=== PATIENT | male | born 1950 | race Caucasian/White ===

== ENCOUNTER 2016-04-06 12:36 | Emergency (ER) | payer BC | END 2016-04-06 13:46 | disposition left against medical advice (07) | LOC: UCCORT 12:36 | DX: M79.646 Pain in unspecified finger(s) (principal); Z53.21 Procedure and treatment not carried out due to patient leaving prior to being seen by health care provider | CPT/HCPCS: 99211; G0463 ==

== ENCOUNTER 2017-07-14 14:31 | Emergency (ER) | payer BC ==
[2017-07-14 15:28] VITALS: BP 162/106
[2017-07-14] MEDS ORDERED: Lidocaine 1% MPF* 2 ML VIAL INJ ONE (15:29)
[2017-07-14] MEDS ORDERED: Triamcinolone Acetonide* 40 MG/ML 1 ML VIAL INTRAARTIC ONE (15:29)
[2017-07-14] MEDS ORDERED: Bupivacaine 0.25% SDV* 30 ML INJ ONE (15:32)
--- NOTE | 2017-07-14 15:36 | UC ---
Knee Pain HPI - HPI Summary HPI Summary: Right knee pain aggrevated after PT 2 days ago. Feels like some swelling, but no warmth or fever - History of Current Complaint Stated Complaint: KNEE PAIN Time Seen by Provider: 07/14/17 15:26 Hx Obtained From: Patient Onset/Duration: Sudden Onset, Lasting Days - 2, Still Present Severity Initially: Moderate Severity Currently: Severe Pain Intensity: 9 Character: Sharp, Aching, Throbbing Aggravating Factor(s): Movement, Weight Bearing, Prolonged Standing Associated Signs And Symptoms: Positive: Swelling Able to Bear Weight: Yes - Risk Factors Septic Arthritis Risk Factor: Pre-existing Joint Disease Gout Risk Factor: Age ^ 39, Male - Allergies/Home Medications Allergies/Adverse Reactions: Allergies Allergy/AdvReac Type Severity Reaction Status Date / Time levalbuterol [From Xopenex] AdvReac Altered Verified 07/14/17 15:29 Mental Status PMH/Surg Hx/FS Hx/Imm Hx - Additional Past Medical History Additional PMH: Muscular dystrophyh Endocrine History: Dyslipidemia Cardiovascular History: Hypertension Respiratory History: COPD Other History Of: Negative For: Anticoagulant Therapy - Surgical History Surgical History: Yes Surgery Procedure, Year, and Place: PT STATES PREVIOUS SINUS SURG LEFT SIDE - Family History Known Family History: Positive: None - reviewed & noncontributory, Cardiac Disease, Hypertension, Diabetes - father - Social History Occupation: Retired Lives: With Family Alcohol Use: Daily Alcohol Amount: pt stated that he drinks 2 beers a day Substance Use Type: None Smoking Status (MU): Former Smoker Type: Cigarettes Amount Used/How Often: 1PPD 20 YRS Length of Time of Smoking/Using Tobacco: 30+ years Have You Smoked in the Last Year: Yes When Did the Patient Quit Smoking/Using Tobacco: 1990 Household Exposure Type: Cigarettes - Immunization History Most Recent Influenza Vaccination: Fall 2014 Most Recent Tetanus Shot: up to date Most Recent Pneumonia Vaccination: yes Review of Systems Musculoskeletal: Arthralgia - right knee Is Patient Immunocompromised?: No All Other Systems Reviewed And Are Negative: Yes Physical Exam Triage Information Reviewed: Yes Appearance: Well-Appearing, Well-Nourished, Pain Distress Vital Signs Reviewed: Yes Eyes: Positive: Conjunctiva Clear Neck exam: Normal Respiratory Exam: Normal Cardiovascular Exam: Normal Abdomen Description: Positive: Nontender, No Organomegaly, Soft Musculoskeletal: Positive: Strength Limited @ - right leg, Other: - Right knee with no instability. No effusion or warmth Neurological: Positive: Abnormal Muscle Tone Psychological Exam: Normal Skin Exam: Normal Knee Pain Course/Dx - Differential Dx/Diagnosis Differential Diagnosis/HQI/PQRI: Contusion, Patellofemoral Syndrome, Sprain Provider Diagnoses: Osteoarthritis right knee Discharge - Sign-Out/Discharge Documenting (check all that apply): Discharge/Admit/Transfer - Discharge Plan Condition: Stable Disposition: HOME Patient Education Materials: Osteoarthritis (ED), Steroid Joint Injection (DC) Referrals: Michael Harrington MD [Primary Care Provider] - Additional Instructions: Watch for signs of infection, even up to 10 days later. In the future consider haluronic acid injections for the arthritis. - Billing Disposition and Condition Condition: STABLE Disposition: HOME
[2017-07-14] MEDS ORDERED: Bupivacaine 0.25% SDV* 30 ML ONE (15:39)
== END 2017-07-14 16:04 | disposition home or self-care (01) ==
LOC: UCCORT 14:31
DX: M17.11 Unilateral primary osteoarthritis, right knee (principal); Z88.8 Allergy status to other drugs, medicaments and biological substances; I10 Essential (primary) hypertension; Z87.891 Personal history of nicotine dependence
CPT/HCPCS: 20610; 99212; G0463; J3301

== ENCOUNTER 2018-04-29 19:29 | Inpatient (IN) | payer BC ==
[2018-04-29] MEDS ORDERED: NS 0.9% 1000 ML** 1,000 ML IV.FLUID IV ONE (20:00)
[2018-04-29] MEDS ORDERED: Acetaminophen SUPP* 325 MG SUPP PR ONE (20:01)
[2018-04-29] MEDS ORDERED: Piperacillin/Tazobac ADVAN(*) 3.375 GM in NS 0.9% 100 ML* 100 ML IVPB ONE (20:02)
[2018-04-29] MEDS ORDERED: Albuterol/Ipratropium NEB.SOL* Albuterol 2.5 MG/Ipratropium 0.5 MG 3 ML INH ONE (20:02)
--- NOTE | 2018-04-29 20:02 | ED ---
Complex/Multi-Sys Presentation - HPI Summary HPI Summary: Patient is a 68 y/o M presenting to ED with complaints of productive cough, AMS. reports that patient has been having productive cough for the past two days, notes PMHx of PNA, sepsis, and COPD. She states that the patient takes Advair. She states that patient has been sleeping more than usual but denies fever in patient. Patient was 87 o2 sat on RA upon arrival. Patient's states that the patient was altered today, states that patient's daughter had found the patient on the ground after he fell off his porch and possibly struck his head at around 1700 today. notes that patient works two jobs, at baseline is A&Ox3. PMHx of muscular dystrophy. On triage, pain is denied. Nothing is noted to aggravate/alleviate Sx. Home medications and allergies are reviewed. Level 5 caveat, AMS. - History Of Current Complaint Chief Complaint: EDAltMentalStatus Time Seen by Provider: 04/29/18 19:51 Hx Obtained From: Family/Lead Oracle Developer - Hx From Patient Unobtainable Due To: Altered Mental Status - level 5 caveat, AMS Onset/Duration: Lasting Hours - possible head injury 1700 today, Lasting Days - productive cough, increased sleep past two days, Still Present Timing: Constant - productive cough, increased sleep past two days, Hours - possible head injury 1700 today, Days - productive cough, increased sleep past two days Severity Currently: None - pain denied on triage Location: Negative Aggravating Factor(s): nothing Alleviating Factor(s): nothing Associated Signs And Symptoms: Positive: Cough - productive, Other - POSITIVE - HEAD INJURY, INCREASED SLEEP. Negative: Fever - Allergies/Home Medications Allergies/Adverse Reactions: Allergies Allergy/AdvReac Type Severity Reaction Status Date / Time levalbuterol [From Xopenex] AdvReac Altered Verified 04/29/18 19:34 Mental Status PMH/Surg Hx/FS Hx/Imm Hx Endocrine/Hematology History: Denies: Hx Anticoagulant Therapy, Hx Blood Disorders, Hx Diabetes, Hx Thyroid Disease Cardiovascular History: Reports: Hx Hypercholesterolemia, Hx Hypertension Denies: Hx Congestive Heart Failure, Hx Myocardial Infarction, Hx Pacemaker/ ICD, Other Cardiovascular Problems/Disorders Respiratory History: Reports: Hx Chronic Obstructive Pulmonary Disease (COPD), Hx Pneumonia, Hx Sleep Apnea, Other Respiratory Problems/Disorders - bronchitis Denies: Hx Asthma GI History: Denies: Hx Ulcer Musculoskeletal History: Reports: Other Musculoskeletal History - muscular dystrophy Sensory History: Reports: Hx Cataracts, Hx Contacts or Glasses Opthamlomology History: Reports: Hx Cataracts, Hx Contacts or Glasses Neurological History: Reports: Other Neuro Impairments/Disorders - muscular dystrophy, neuropathy blt hands and feet Psychiatric History: Reports: Hx Anxiety - Surgical History Surgery Procedure, Year, and Place: PT STATES PREVIOUS SINUS SURG LEFT SIDE Hx Anesthesia Reactions: No Infectious Disease History: Unable to Obtain/Confirm Infectious Disease History: Reports: Hx Clostridium Difficile - ESBL lung Denies: Hx Hepatitis, Hx Human Immunodeficiency Virus (HIV), Hx of Known/ Suspected MRSA, Hx Shingles, Hx Tuberculosis, Hx Known/Suspected VRE, Hx Known/ Suspected VRSA, History Other Infectious Disease, Traveled Outside the [place] in Last 30 Days - Family History Known Family History: Positive: Cardiac Disease, Hypertension, Diabetes - father - Social History Alcohol Use: Daily Alcohol Amount: pt stated that he drinks 2 beers a day Hx Substance Use: No Substance Use Type: Reports: None Hx Tobacco Use: Yes Smoking Status (MU): Former Smoker Type: Cigarettes Amount Used/How Often: 1PPD 20 YRS Length of Time of Smoking/Using Tobacco: 30+ years Have You Smoked in the Last Year: Yes Review of Systems - ROS Summary Review of Systems Summary: LEVEL 5 CAVEAT AMS Constitutional: Other - POSITIVE - INCREASED SLEEP Negative: Fever Positive: Cough - PRODUCTIVE Neurological: Other - POSITIVE - HEAD INJURY All Other Systems Reviewed And Are Negative: No - Comments Additional Review of Systems Comments: LEVEL 5 CAVEAT AMS Physical Exam - Summary Physical Exam Summary: VITAL SIGNS: Reviewed. GENERAL: Patient is a well-developed and nourished male who is lying comfortable in the stretcher. Patient is not in any acute respiratory distress. Patient is lethargic. HEAD AND FACE: No signs of trauma. No ecchymosis, hematomas or skull depressions. No sinus tenderness. EYES: PERRLA, EOMI x 2, No injected conjunctiva, no nystagmus. EARS: Hearing grossly intact. Ear canals and tympanic membranes are within normal limits. MOUTH: Oropharynx within normal limits. NECK: Supple, trachea is midline, no adenopathy, no JVD, no carotid bruit, no c- spine tenderness, neck with full ROM. CHEST: Symmetric, no tenderness at palpation LUNGS: Decreased breath sounds bilaterally. No wheezing or crackles. CVS: Regular rate and rhythm, S1 and S2 present, no murmurs or gallops appreciated. ABDOMEN: Soft, non-tender. No signs of distention. No rebound no guarding, and no masses palpated. Bowel sounds are normal. EXTREMITIES: reports weakness from dystrophy, no edema, no cyanosis or clubbing. NEURO: Patient is alert and oriented to name, does not answer any other questions beyond name. Cannot assess patient neurologically due to AMS. SKIN: Dry and warm Triage Information Reviewed: Yes Vital Signs On Initial Exam: Initial Vitals Temp Pulse Resp BP Pulse Ox 97.4 F 113 18 88/62 88 04/29/18 19:30 04/29/18 19:30 04/29/18 19:30 04/29/18 19:30 04/29/18 19:30 Vital Signs Reviewed: Yes Completion Of Physical Exam Limited Due To: Altered Mental Status, Level 5 Diagnostics - Vital Signs Vital Signs Temp Pulse Resp BP Pulse Ox 04/29/18 19:30 97.4 F 113 18 88/62 88 - Laboratory Result Diagrams: 04/29/18 20:10 04/29/18 20:10 Lab Statement: Any lab studies that have been ordered have been reviewed, and results considered in the medical decision making process. - Radiology CXR Radiology Interpretation Completed By: ED Physician - Dr. Bhatti Summary of Radiographic Findings: Left lower lobe PNA, pending official report. - CT BRAIN CT CT Interpretation Completed By: Radiologist Summary of CT Findings: IMPRESSION: No acute intracranial abnormality. This report was reviewed by Dr. Bahtti. - EKG 1826 Cardiac Rate: NL - rate of 86 BPM EKG Rhythm: Sinus Rhythm Summary of EKG Findings: EKG showed sinus rhythm with rate of 84 BPM, normal axis, normal interval, no ischemic changes. Re-Evaluation - Re-Evaluation First Eval Re-Evaluation Time: 21:06 Comment: Informed and patient of admission, they are agreeable. Complex Multi-Symp Course/Dx Course Of Treatment: Patient is a 68 y/o M presenting to ED with complaints of productive cough, AMS. reports that patient has been having productive cough for the past two days, notes PMHx of PNA, sepsis, and COPD. She states that the patient takes Advair. She states that patient has been sleeping more than usual but denies fever in patient. Patient was 87 o2 sat on RA upon arrival. Patient's states that patient was altered today, states that patient's daughter had found the patient on the ground after he fell off his porch and possibly struck his head at around 1700 today. notes that patient works two jobs, at baseline is A&Ox3. PMHx of muscular dystrophy. On triage, pain is denied. Nothing is noted to aggravate/alleviate Sx. Home medications and allergies are reviewed. Level 5 caveat, AMS. On physical exam, patient is alert and oriented to name, does not answer any other questions beyond name. Cannot assess patient neurologically due to AMS. Patient is lethargic. reports weakness from dystrophy. Decreased breath sounds bilaterally. CXR showed Left lower lobe PNA, pending official report. EKG showed sinus rhythm with rate of 84 BPM, normal axis, normal interval, no ischemic changes. Labs showed Hgb 13.5, Hct 41, absolute lymphs 0.9, INR 1.15, potassium 132, carbon dioxide 21, trop 0.01, CRP 103.25, WBC 8.1. Brain CT IMPRESSION: No acute intracranial abnormality. During ED course, patient received vancomycin HCl 1000 mg in sodium chloride 250 mls @ 166.667 mls/hr IVPB ED ONCE ONE, fluids, piperacillin sod/tazovactam sod 3.375 gm in sodium chloride 100 mls @ 200 mls/hr IVPB ED ONCE ONE, and duoneb. Patient's case was discussed with Dr. Kaur, Dr. Kaur accepts for admission, ABG to be received. Informed and patient of admission, they are agreeable. - Diagnoses Provider Diagnoses: PNA (pneumonia) - Physician Notifications Discussed Care Of Patient With: Irina Kaur Time Discussed With Above Provider: 20:53 Instructed by Provider To: Other - Patient's case was discussed with Dr. Kaur, Dr. Kaur accepts for admission. Discharge - Sign-Out/Discharge Documenting (check all that apply): Patient Departure - admit - Discharge Plan Condition: Good Disposition: ADMITTED TO [facility] Referrals: Vaishali Harrington MD [Primary Care Provider] - - Attestation Statements Document Initiated by Scribe: Yes Documenting Scribe: VAISHALI LAROSE Provider For Whom Scribe is Documenting (Include Credential): LIUDMILA BHATTI MD Scribe Attestation: VAISHALI Banks, scribed for LIUDMILA BHATTI MD on 04/29/18 at 2102. Status of Scribe Document: Ready
[2018-04-29] MEDS ORDERED: Vancomycin(*) 1,000 MG in NS 0.9% 250 ML* 250 ML IVPB ONE (20:03)
[2018-04-29 20:23] LABS: ABS Basophils 0 10^3/ul (0-0.2); ABS Eosinophils 0 10^3/ul (0-0.6); ABS Lymphocytes 0.9 10^3/ul (1.0-4.8); ABS Monocytes 0.5 10^3/ul (0-0.8); ABS Neutrophils 6.6 10^3/ul (1.5-7.7); ABS Nucleated RBC 0 10^3/ul; Eosinophil % 0.2 %; Hematocrit 41 % (42-52); Hemoglobin 13.5 g/dl (14.0-18.0); Lymphocyte % 11.5 %; Mean Corpuscular HGB Conc 33 g/dl (31-36); Mean Corpuscular Hemoglobin 27 pg (27-31); Mean Corpuscular Volume 80 fL (80-94); Mean Platelet Volume 8.2 fL (7.4-10.4); Nucleated Red Blood Cells % 0; Platelet Count 182 10^3/ul (150-450); Red Cell Distribution Width 14 % (10.5-15); White Blood Count 8.1 10^3/ul (3.5-10.8)
[2018-04-29 20:31] LABS: Activated Partial Thrombo Time 35.6 seconds (26.0-36.3); INR 1.15 (0.77-1.02)
[2018-04-29 20:40] LABS: ALT 19 U/L (7-52); AST 31 U/L (13-39); Albumin 3.8 g/dL (3.2-5.2); Albumin/Globulin Ratio 1.2 (1-3); Alkaline Phosphatase 53 U/L (34-104); Anion Gap 10 mmol/L (2-11); BUN/Creatinine Ratio 9.6 (8-20); Blood Urea Nitrogen 11 mg/dL (6-24); C Reactive Protein 103.25 mg/L (<8.01); CO2 Carbon Dioxide 21 mmol/L (22-32); Calcium 9.2 mg/dL (8.6-10.3); Chloride 101 mmol/L (101-111); EGFR African American 76.3 (>60); EGFR Non-African American 63.1 (>60); Globulin 3.1 g/dL (2-4); Glucose 89 mg/dL (70-100); Potassium 4.1 mmol/L (3.5-5.0); Sodium 132 mmol/L (135-145); Total Protein 6.9 g/dL (6.4-8.9); Troponin I 0.01 ng/mL (<0.04)
[2018-04-29] MEDS ORDERED: Albuterol 2.5 MG/3 ML NEB.SOL* (0.083%) INH SCH ×2 (21:00→23:00)
[2018-04-29] MEDS ORDERED: Acetaminophen SUPP* 650 MG SUPP ONE (21:00)
[2018-04-29] MEDS ORDERED: Naloxone* 0.4 MG/ML 1 ML VIAL IV PUSH ONE (21:30)
[2018-04-29] MEDS ORDERED: Naloxone* 0.4 MG/ML 1 ML VIAL ONE (21:32)
[2018-04-29] MEDS ORDERED: Meropenem 1 GM PREMIX(*) 1 GM/50 ML BAG IV ONE (21:37)
[2018-04-29] MEDS ORDERED: Morphine INJ* 2 MG/ML 1 ML SYRINGE (TWO MG - NEW SYRINGE VERSION) IV PRN (21:41)
[2018-04-29] MEDS ORDERED: Ondansetron INJ* 2 MG/ML VIAL IV PRN (21:41)
[2018-04-29 21:58] LABS: Alcohol < 10 mg/dL (<10)
[2018-04-29] MEDS: Acetaminophen SUPP* 650 MG SUPP PR ONE ×2 (22:00→23:00)
[2018-04-29] MEDS: Acetaminophen SUPP* 325 MG SUPP PR ONE ×2 (22:01→23:00)
[2018-04-29] MEDS ORDERED: Albuterol/Ipratropium NEB.SOL* Albuterol 2.5 MG/Ipratropium 0.5 MG 3 ML INH PRN (22:11)
[2018-04-29 22:26] LABS: Influenza A Molecular NEGATIVE (Negative); Influenza B Molecular NEGATIVE (Negative)
[2018-04-29] MEDS ORDERED: Acetaminophen ADULT LIQ* 650 MG/20.3 ML UDC ONE (22:29)
--- NOTE | 2018-04-29 23:29 | HP ---
HISTORY AND PHYSICAL: DATE OF ADMISSION: 04/29/18 TIME OF EVALUATION: 2100 PRIMARY CARE PHYSICIAN: Michael Harrington MD. CHIEF COMPLAINT: Altered mental status. HISTORY OF PRESENT ILLNESS: Of note, most of the history is obtained by the , Karrie Richards, who is an linux network systems administrator at urgent care. This is a 68-year- old male with past medical history of muscular dystrophy, who began coughing around 04/26/18. He continued to cough with some shortness of breath. The came home from urgent care this evening and she found him disoriented with nonsensical speaking and she brought him urgently to the emergency room for further evaluation. On arrival to the emergency room, he was satting 87% on room air. She states he has not had any vomiting or diarrhea, no abdominal pain , no urinary symptoms. She states that he is high aspiration risk because of his muscular dystrophy. He does cough frequently after he is eating. They do try to modify his position and technique, but they have not modified his diet. He had not had a swallow evaluation for the past several years. He has had a decline over the past few months with decrease in p.o. with weight loss, but he remains independent of his ADLs. Otherwise, review of systems is limited due to the patient's altered mental status. In the emergency room, the patient had labs, imaging. He was given 250 cc of normal saline, vancomycin, Zosyn, albuterol nebs, and referred to the hospitalist service for further evaluation. PAST MEDICAL HISTORY: 1. History of aspiration pneumonia as well as ESBL Klebsiella pneumoniae. 2. History of muscular dystrophy with lower extremity weakness. 3. COPD, on room air. 4. Hyperlipidemia. 5. History of peripheral neuropathy. 6. Chronic pain, on narcotics. 7. History of obstructive sleep apnea, the patient is intolerant to CPAP. 8. Insomnia. MEDICATIONS: The was able to give me his list, but not the dosages. 1. Unclear how much OxyContin he is currently taking. She states he has been weaning back on this. 2. Lactulose as needed. 3. Atrovent as needed. 4. Indocin as needed. 5. Advair b.i.d. 6. TriCor 145 mg p.o. daily. 7. Lunesta daily at bedtime as needed. 8. Flexeril as needed. 9. Atorvastatin 20 mg daily. 10. Aspirin 325 mg daily. 11. Albuterol nebulizer as needed. ALLERGIES: LEVALBUTEROL caused altered mental status. FAMILY HISTORY: Mother from pancreatic cancer in her 70s. Father from an ID at age 68. SOCIAL HISTORY: The patient lives at home with his who is healthcare proxy. He is independent of his ADLs. He ambulates with a cane. 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 He quit smoking more than 25 years ago. He does drink a few glasses of wine per day. His code status is full code. REVIEW OF SYSTEMS: A 14-point review of systems is limited due to the patient' s altered mental status. PHYSICAL EXAMINATION GENERAL: The patient is sleeping, but does awake to verbal and tactile stimulation. VITAL SIGNS: Temp 98.9, pulse rate 100, respiratory rate 12, oxygen saturation is 98% on 5 L OxyMask, blood pressure is 95/52. HEENT: Head normocephalic. Pupils are dilated and reactive. Conjunctivae anicteric. Oropharynx, mucous membranes are dry. He has foam balls in his oropharynx region. He has poor dentition. NECK: Supple. No lymphadenopathy, no nuchal rigidity. RESPIRATORY: Bilateral rhonchi. No expiratory wheeze. No increased work of breathing. CARDIAC: Tachycardic. Soft systolic murmur heard throughout. ABDOMEN: Soft, nontender, and nondistended. EXTREMITIES: No clubbing, cyanosis, or edema. He has +2 DPs. NEUROLOGIC: The patient is alert and oriented x1. Oriented to self. As mentioned, does awake to voice and tactile stimuli. No gross focal neurologic deficits. LABORATORY DATA/RADIOGRAPHIC DATA: White count 8.1, hemoglobin 13.5, hematocrit 41, platelets 182. INR is 1.15. Blood gas, pH of 7.3, pCO2 of 29, pO2 is 122. Sodium 132, potassium 4.1, chloride 101, bicarb 21, BUN 11, creatinine 1.15, glucose 89, lactic acid 1, CRP is 103, troponin is 0.01, BNP is 56. Radiographic Data: Increased opacification in the right middle lobe and right lower lobe. ASSESSMENT: This is a 68-year-old male with past medical history of muscular dystrophy who presents with worsening cough, shortness of breath, and altered mental status. 1. Cough, shortness of breath, and altered mental status. Assessment: Foreign objects were found in his oropharynx which are nontoxic play toys that the states that they have at home with for their granddaughter. There was concern at that time that he may have taken an extra OxyContin. 0.4 mg of Narcan was given in the emergency room and he did wake up and became much more alert, so I suspect his altered mental status is secondary to taking extra OxyContin. I am concerned that the patient does have aspiration pneumonia. He also has a history of ESBL Klebsiella pneumoniae and he has been declining with weight loss and decreased appetite. Plan: We will admit to [address] [place] [address] on telemetry. I am going to change him to meropenem for now, which will cover him for ESBL klebsiella and also for aspiration pneumonia. We will put him in for a swallow evaluation and swallowing function imaging test as well and a nutrition consult. We will keep him n.p.o. until he passes a dysphagia screen by the nursing staff. We will also check an alcohol level and continue bladder scan and obtain a sputum sample if possible. No indication for prednisone at this time as the patient is not actively wheezing. We will continue him on his albuterol and DuoNeb. 2. Chronic medical problems. Chronic pain, as mentioned, we will need to get the med rec to obtain what the dosage of OxyContin the patient is actually taking. If he does pass a swallow, we will resume and if he is more alert, we will resume his OxyContin at a lower dose of 60 in the morning and increase it accordingly. Continue him on his bowel regimen, continue his inhalers as prescribed. 3. FEN. We will keep him n.p.o. for now in his state of somnolence with IV fluids. 4. DVT prophylaxis. The patient scores high risk. We will place him on heparin subcu t.i.d. 5. Code status. Full code. PATIENT TIME: Greater than 50 minutes spent doing his history and physical, more than half the time spent in direct patient contact. [id number]/CPS #: [id number] MTDD
[2018-04-30] MEDS: NS 0.9% 1000 ML** 1,000 ML IV SCH ×2 (00:38→09:31)
[2018-04-30] MEDS: Heparin VIAL(*) 5000 UNITS/ML VIAL (FIVE THOUSAND) SUBCUT SCH ×4 (01:15→21:43)
[2018-04-30 06:05] LABS: Urine Appearance Cloudy; Urine Bilirubin Negative (Negative); Urine Blood Negative (Negative); Urine Color Amber; Urine Glucose Negative (Negative); Urine Ketones Negative (Negative); Urine Nitrite Negative (Negative); Urine Protein Negative (Negative); Urine Specific Gravity 1.018 (1.010-1.030); Urine Urobilinogen Negative (Negative)
[2018-04-30 07:43] LABS: ABS Basophils 0 10^3/ul (0-0.2); ABS Eosinophils 0 10^3/ul (0-0.6); ABS Lymphocytes 1.7 10^3/ul (1.0-4.8); ABS Monocytes 0.5 10^3/ul (0-0.8); ABS Neutrophils 4.1 10^3/ul (1.5-7.7); ABS Nucleated RBC 0 10^3/ul; Eosinophil % 0.6 %; Hematocrit 33 % (42-52); Hemoglobin 10.8 g/dl (14.0-18.0); Lymphocyte % 27.4 %; Mean Corpuscular HGB Conc 33 g/dl (31-36); Mean Corpuscular Hemoglobin 26 pg (27-31); Mean Corpuscular Volume 81 fL (80-94); Mean Platelet Volume 7.9 fL (7.4-10.4); Nucleated Red Blood Cells % 0; Platelet Count 127 10^3/ul (150-450); Red Blood Count 4.13 10^6/ul (4.00-5.40); Red Cell Distribution Width 14 % (10.5-15); White Blood Count 6.3 10^3/ul (3.5-10.8)
[2018-04-30] MEDS: Albuterol 2.5 MG/3 ML NEB.SOL* (0.083%) INH SCH ×3 (08:17→20:14)
[2018-04-30 08:21] LABS: Calcium 7.8 mg/dL (8.6-10.3); EGFR African American 89.6 (>60); EGFR Non-African American 74.1 (>60); Potassium 3.9 mmol/L (3.5-5.0)
[2018-04-30] MEDS: Fluticasone-Salmeterol 250-50* DISKUS INH SCH ×2 (08:21→20:14)
[2018-04-30] MEDS ORDERED: Meropenem 1 GM PREMIX(*) 1 GM/50 ML BAG IV SCH (09:00)
[2018-04-30] MEDS: Aspirin TAB* 325 MG PO SCH (13:17)
[2018-04-30] MEDS: oxyCODONE SR TAB(*) 20 MG TAB.SR PO SCH ×2 (13:19→21:26)
[2018-04-30] MEDS: Atorvastatin* 20 MG TAB PO SCH (13:19)
--- NOTE | 2018-04-30 16:07 | PN ---
Subjective Date of Service: 04/30/18 Interval History: Seen with at bedside +cough Not SOB but requiring 4 L O2. Denies CP, LH, nausea/emesis Has not walked an appreciable distance Objective Active Medications: Albuterol (Ventolin 2.5 Mg/3 Ml Neb.Elsie*) 2.5 mg INH .Q20M [facility] Last Admin: 04/30/18 08:08 Dose: Not Given Albuterol (Ventolin 2.5 Mg/3 Ml Neb.Elsie*) 2.5 mg INH [id number] AWAKE [facility] Last Admin: 04/30/18 08:17 Dose: 2.5 mg Albuterol/Ipratropium (Duoneb (Albuterol 2.5 Mg/Ipratropium 0.5 Mg)) 1 neb INH Q4H PRN PRN Reason: SOB/WHEEZING Aspirin (Aspirin Tab*) 325 mg PO DAILY [facility] Last Admin: 04/30/18 13:17 Dose: Not Given Atorvastatin Calcium (Lipitor*) 20 mg PO DAILY [facility] Last Admin: 04/30/18 13:19 Dose: 20 mg Heparin Sodium (Porcine) (Heparin Vial(*)) 5,000 units SUBCUT Q8HR [facility] Last Admin: 04/30/18 13:20 Dose: 5,000 units Meropenem (Merrem 1 Gm Premix(*)) 1 gm in 50 mls @ 100 mls/hr IV Q8H [facility] Last Admin: 04/30/18 09:30 Dose: 100 mls/hr Sodium Chloride (Ns 0.9% 1000 Ml) 1,000 mls @ 125 mls/hr IV PER RATE [facility] Last Admin: 04/30/18 09:31 Dose: 125 mls/hr Morphine Sulfate (Morphine Inj ((Syringe))*) 2 mg IV Q4H PRN PRN Reason: PAIN - MILD Ondansetron HCl (Zofran Inj*) 4 mg IV Q4H PRN PRN Reason: NAUSEA/VOMITING Oxycodone HCl (Oxycontin(*)) 60 mg PO Q12HR [facility] Last Admin: 04/30/18 13:19 Dose: Not Given Fluticasone/Salmeterol (Advair Diskus 250-50*) 1 puff INH BID [facility] Last Admin: 04/30/18 08:21 Dose: 1 inh Zolpidem Tartrate (Ambien Tab*) 10 mg PO BEDTIME PRN; Protocol PRN Reason: SLEEP Vital Signs - 8 hr 04/30/18 11:09 Temperature 97.4 F Pulse Rate 75 Respiratory 18 Rate Blood Pressure 141/71 (mmHg) O2 Sat by Pulse 98 Oximetry Oxygen Devices in Use Now: Nasal Cannula - 4L NC Appearance: sitting up in bed, NAD Eyes: No Scleral Icterus, PERRLA Ears/Nose/Mouth/Throat: NL Teeth, Lips, Gums, Clear Oropharnyx Neck: NL Appearance and Movements; NL JVP, Trachea Midline Respiratory: Symmetrical Chest Expansion and Respiratory Effort, - - diffuse rhochi throughout, trace end expiratory wheeze Cardiovascular: RRR Abdominal: NL Sounds; No Tenderness; No Distention, No Hepatosplenomegaly Lymphatic: No Cervical Adenopathy Skin: No Rash or Ulcers Neurological: Alert and Oriented x 3 Result Diagrams: 04/30/18 07:12 04/30/18 07:12 Microbiology and Other Data: Microbiology 04/30/18 06:00 Gram Stain - Final Sputum Expectorated 04/29/18 22:00 Influenza Types A,B Antigen - Final Nasal Specimen received for Influenza A/B Molecular testing Assess/Plan/Problems-Billing Assessment: 68 yo M h/o muscular dystrophy, COPD without chornic resp failure, chronic pain on narcotics, EVER not on CPAP developed AMS and hypoxic respiratory failure. - Patient Problems (1) Acute respiratory failure with hypoxia Comment: Concern for aspiration PNA although not evident on presenting CXR, normal WBC, Tmax 100.3 (once) Lung exam reveals diffuse adventitious lung sounds. Plan on checking CT non-con for better interogation of lungs change meropenum to zosyn start prednison 60 mg daily tomorrow. (2) COPD (chronic obstructive pulmonary disease) Comment: Continue nebs and dulera. This does not appear to be an exacerbation although remains in the differential Starting PO steroids 05/01 (3) Chronic pain Comment: ISTOP reviewed; receiving oxycontin ER 80mg 180 tabs monthly (480 mg/ day or 720 mg morphine equivalents) He did receive narcan with some improvement in the ED This seems like an excessive dose and may be contributing to his presentation with AMS (4) DVT prophylaxis Comment: SQ heparin
[2018-04-30] MEDS ORDERED: Piperacillin/Tazobac ADVAN(*) 3.375 GM in NS 0.9% 100 ML* 100 ML IVPB ONE (17:00)
[2018-04-30] MEDS ORDERED: Zosyn per Pharmacy* NOTE FOLLOW UP SCH (17:00)
[2018-04-30] MEDS: methylPREDNISolone SOD 40 MG* 1 ML VIAL IV SCH (17:29)
[2018-04-30] MEDS: ZOSYN 3.375 GM Q8H per EXTENDED INFUSION IVPB SCH ×2 (21:43)
[2018-04-30] MEDS ORDERED: Zolpidem TAB* 10 MG PO PRN (21:44)
--- NOTE | 2018-05-01 00:38 | PN ---
Progress Note - Progress Note Date of Service: 05/01/18 Note: Patient had 500 cc urine output, PVR >500 - patient refused straight cath. Recommend follow up in AM
[2018-05-01] MEDS: Albuterol 2.5 MG/3 ML NEB.SOL* (0.083%) INH SCH (01:18)
[2018-05-01] MEDS: methylPREDNISolone SOD 40 MG* 1 ML VIAL IV SCH ×3 (01:41→16:42)
[2018-05-01] MEDS ORDERED: Albuterol 2.5 MG/3 ML NEB.SOL* (0.083%) INH PRN (02:16)
[2018-05-01] MEDS: ZOSYN 3.375 GM Q8H per EXTENDED INFUSION IVPB SCH ×6 (06:13→20:50)
[2018-05-01] MEDS: Heparin VIAL(*) 5000 UNITS/ML VIAL (FIVE THOUSAND) SUBCUT SCH ×3 (06:16→20:52)
[2018-05-01] MEDS: Fluticasone-Salmeterol 250-50* DISKUS INH SCH ×2 (07:29→19:36)
[2018-05-01] MEDS ORDERED: predniSONE TAB* 20 MG PO SCH (09:00)
[2018-05-01] MEDS: Atorvastatin* 20 MG TAB PO SCH (09:01)
[2018-05-01] MEDS: Aspirin TAB* 325 MG PO SCH ×2 (09:01→09:13)
[2018-05-01] MEDS: oxyCODONE SR TAB(*) 20 MG TAB.SR PO SCH ×2 (09:01→20:49)
--- NOTE | 2018-05-01 17:29 | PN ---
Subjective Date of Service: 05/01/18 Interval History: Titrated off oxygen cough less productive and purulent does not feel SOB Objective Active Medications: Albuterol (Ventolin 2.5 Mg/3 Ml Neb.Elsie*) 2.5 mg INH Q4H PRN PRN Reason: SOB/WHEEZING Albuterol/Ipratropium (Duoneb (Albuterol 2.5 Mg/Ipratropium 0.5 Mg)) 1 neb INH Q4H PRN PRN Reason: SOB/WHEEZING Aspirin (Aspirin Tab*) 325 mg PO DAILY [facility] Last Admin: 05/01/18 09:13 Dose: Not Given Atorvastatin Calcium (Lipitor*) 20 mg PO DAILY [facility] Last Admin: 05/01/18 09:01 Dose: 20 mg Heparin Sodium (Porcine) (Heparin Vial(*)) 5,000 units SUBCUT Q8HR [facility] Last Admin: 05/01/18 13:21 Dose: 5,000 units Piperacillin Sod/Tazobactam (Sod 3.375 gm/ Sodium Chloride) 100 mls @ 25 mls/ hr IVPB Q8H [facility] Last Admin: 05/01/18 13:21 Dose: 25 mls/hr Methylprednisolone Sodium Succinate (Solu-Medrol 40 Mg) 40 mg IV Q8H [facility] Last Admin: 05/01/18 16:42 Dose: 40 mg Morphine Sulfate (Morphine Inj ((Syringe))*) 2 mg IV Q4H PRN PRN Reason: PAIN - MILD Ondansetron HCl (Zofran Inj*) 4 mg IV Q4H PRN PRN Reason: NAUSEA/VOMITING Oxycodone HCl (Oxycontin(*)) 60 mg PO Q12HR [facility] Last Admin: 05/01/18 09:01 Dose: 60 mg Pharmacy Consult (Zosyn Per Pharmacy*) 1 note FOLLOW UP .ZOSYN PER PHARMACY [facility] Fluticasone/Salmeterol (Advair Diskus 250-50*) 1 puff INH BID [facility] Last Admin: 05/01/18 07:29 Dose: 1 inh Zolpidem Tartrate (Ambien Tab*) 10 mg PO BEDTIME PRN; Protocol PRN Reason: SLEEP Vital Signs - 8 hr 05/01/18 05/01/18 05/01/18 09:47 11:38 11:54 Temperature 98.1 F 98.7 F Pulse Rate 76 83 Respiratory 16 20 Rate Blood Pressure 154/75 148/75 (mmHg) O2 Sat by Pulse 100 100 100 Oximetry Oxygen Devices in Use Now: None Appearance: NAD Eyes: No Scleral Icterus, PERRLA Ears/Nose/Mouth/Throat: NL Teeth, Lips, Gums, Clear Oropharnyx Neck: NL Appearance and Movements; NL JVP, Trachea Midline Respiratory: Symmetrical Chest Expansion and Respiratory Effort, - - clear in bases with continued whonchi in upper lobes b/l no wheeze Cardiovascular: RRR Abdominal: NL Sounds; No Tenderness; No Distention, No Hepatosplenomegaly Extremities: No Edema Skin: No Rash or Ulcers Neurological: Alert and Oriented x 3 Result Diagrams: 04/30/18 07:12 04/30/18 07:12 Microbiology and Other Data: Microbiology 04/30/18 06:00 Gram Stain - Final Sputum Expectorated 04/29/18 22:00 Influenza Types A,B Antigen - Final Nasal Specimen received for Influenza A/B Molecular testing Assess/Plan/Problems-Billing Assessment: 68 yo M h/o muscular dystrophy, COPD without chornic resp failure, chronic pain on narcotics, EVER not on CPAP developed AMS and hypoxic respiratory failure. - Patient Problems (1) Acute respiratory failure with hypoxia Comment: Concern for aspiration PNA although not evident on presenting CXR or CT chest Sputum positive for H. flu Suspect H. flu PNA and possible component of COPD exacerbation c/w zosyn with plan to d/c on PO augemntin tomorrow if remains stable start prednisone 60 mg daily tomorrow - decreased from IV (2) COPD (chronic obstructive pulmonary disease) Comment: Continue nebs and dulera. REsp status improved with abx and steroids likely dc with short steroid course (3) Chronic pain Comment: ISTOP reviewed; receiving oxycontin ER 80mg 180 tabs monthly (480 mg/ day or 720 mg morphine equivalents) He did receive narcan with some improvement in the ED indicating some component of toxic encepholopathy This seems like an excessive dose and may be contributing to his presentation with AMS (4) DVT prophylaxis Comment: SQ heparin Status and Disposition: likely home tomorrow if remains stable on de escalating doses of steroids
[2018-05-02] MEDS: ZOSYN 3.375 GM Q8H per EXTENDED INFUSION IVPB SCH ×4 (05:31→13:16)
[2018-05-02] MEDS: Heparin VIAL(*) 5000 UNITS/ML VIAL (FIVE THOUSAND) SUBCUT SCH ×2 (05:31→13:27)
[2018-05-02] MEDS: Fluticasone-Salmeterol 250-50* DISKUS INH SCH (08:07)
[2018-05-02] MEDS ORDERED: predniSONE TAB* 50 MG PO SCH (09:00)
[2018-05-02] MEDS: Atorvastatin* 20 MG TAB PO SCH (10:36)
[2018-05-02] MEDS: Aspirin TAB* 325 MG PO SCH (10:36)
[2018-05-02] MEDS: oxyCODONE SR TAB(*) 20 MG TAB.SR PO SCH (10:37)
[2018-05-02 11:40] VITALS: BP 168/70
[2018-05-02] MEDS ORDERED: Lisinopril TAB* 5 MG PO SCH (15:00)
--- NOTE | 2018-05-02 21:09 | DS ---
CC: Dr. Harrington.* DISCHARGE SUMMARY: DATE OF ADMISSION: 04/29/18. DATE OF DISCHARGE: 05/02/18. PRIMARY CARE PROVIDER: Dr. Harrington. DISCHARGE DIAGNOSES: 1. Pneumonia with Haemophilus influenzae cultures in the sputum. 2. Chronic obstructive pulmonary disease exacerbation. SECONDARY DIAGNOSES: 1. History of aspiration pneumonia as well as history of ESBL Klebsiella pneumonia infection. 2. History of muscular dystrophy with lower extremity weakness. 3. History of chronic obstructive pulmonary disease, on room air at baseline. 4. Hyperlipidemia. 5. Peripheral neuropathy. 6. History of chronic pain, on narcotics. 7. Obstructive sleep apnea, the patient is intolerant of CPAP. 8. Insomnia. MEDICATIONS AT HOME: Include: 1. Albuterol nebulizer on a p.r.n. basis. 2. Lipitor 20 mg daily. 3. Flexeril 10 mg 3 times a day p.r.n. 4. Lunesta 3 mg at bedtime p.r.n. 5. TriCor 145 mg daily. 6. Advair 250/50 1 inhalation b.i.d. 7. Indomethacin 50 mg 3 times a day p.r.n. 8. Atrovent nebulizers p.r.n. 9. Lactulose 30 mL daily p.r.n. 10. Lisinopril 5 mg daily. 11. OxyContin 240 mg every 12 hours p.r.n. pain. 12. Albuterol inhaler 1 puff every 4 hours p.r.n. 13. Augmentin 875 mg b.i.d. for a total of 5 days, then stop. 14. Prednisone 50 mg a day for a total of 4 days, then stop. LABORATORY DATA AND STUDIES PERFORMED DURING THE HOSPITAL STAY: Included: On , white blood cell count 6.3, hemoglobin 10.8, hematocrit 33, and platelets of 127,000. Sodium 137, potassium 3.9, chloride 109, carbon dioxide 22, BUN 12, creatinine 1.0. Chest CT obtained on 04/30/18, impression: "Nonspecific nodularity at lateral right middle lobe as well as the right lower lobe posteriorly for which an inflammatory process is not excluded. Scarring is noted at the left lung base. " Video swallow evaluation on 04/30/18, impression: "Trace laryngeal penetration observed with thin consistency liquids without visualized laryngeal aspiration. Negative for laryngeal penetration or aspiration with various consistencies of solids. Retention of liquids and solids noted in the vallecula with clearing of subsequent swallows. Refer to speech pathology report for further description. " Brain CT obtained at admission, impression: "No acute intracranial abnormality. " HOSPITALIZATION COURSE: John Richards is a 68-year-old male with history of muscular dystrophy who presents to the hospital with altered mental status on . Patient was diagnosed with acute respiratory failure at admission with oxygen saturations at 87% on room air. He was subsequently placed on antibiotics, IV fluids and oxygen. Eventually, he was continued on Zosyn throughout his hospital stay. Initially, the working diagnosis was aspiration pneumonia. Nevertheless, his sputum grew Haemophilus influenzae. His blood cultures were negative. By the time of discharge, he was ambulatory and oxygen saturation was 98% on room air. He is going to be continued with Augmentin for the next 5 days to complete 7 days of treatment for his pneumonia. A swallow evaluation was performed and patient was cleared for regular diet without any modification. The day prior to discharge, the patient was noted to have wheezing and he was started on steroids for COPD exacerbation. By the time of discharge, the wheezing resolved, but he is going to continue treatment for the COPD exacerbation for a total of 4 days and with prednisone p.o. He is recommended to follow with his primary care provider in approximately 4 to 7 days. PHYSICAL EXAMINATION AT THE TIME OF DISCHARGE: Blood pressure 168/70, heart rate of 65 and regular, respiratory rate 20, oxygen saturation 86% on room air, temperature 97.9. General: The patient is a very pleasant 68-year-old male who is in no acute distress, alert, awake, oriented x3. HEENT: Head atraumatic , normocephalic. Eyes: Pupils equal, reactive to light and accommodation. Oropharynx is clear. Mucosa is moist. Neck: Supple. No JVD. No bruits bilaterally. Cardiovascular: Regular rate and rhythm. No murmur. Respiratory : Crackles at the right lung base. Otherwise, clear. Abdomen: Soft, nontender. Bowel sounds present in all 4 quadrants. Extremities: There is no edema. Pulses are +2 bilaterally. No clubbing or cyanosis. On neuro evaluation, speech is clear. Cranial nerves II through XII grossly intact. Motor strength is 5/5 bilaterally in upper extremities, minimally decreased in bilateral lower extremities symmetrically. Please note that this is a short summary of the patient's hospitalization. Please refer to further medical records for details. TIME SPENT: Approximately 40 minutes were spent on the patient's discharge. [id number]/[facility] #: [id number] MTDD
== END 2018-05-02 15:20 | disposition home or self-care (01) | DRG 137 ==
LOC: ED 19:29 → MED 21:41
PROVIDERS: ADMIT Pediatrics; ATTEND Internal Medicine
DX: J14 Pneumonia due to Hemophilus influenzae (principal); J96.01 Acute respiratory failure with hypoxia; G92 Toxic encephalopathy; J44.0 Chronic obstructive pulmonary disease with (acute) lower respiratory infection; J44.1 Chronic obstructive pulmonary disease with (acute) exacerbation; H26.9 Unspecified cataract; E78.5 Hyperlipidemia, unspecified; G89.29 Other chronic pain; G47.00 Insomnia, unspecified; G71.00 Muscular dystrophy, unspecified; R53.1 Weakness; G62.9 Polyneuropathy, unspecified; F41.9 Anxiety disorder, unspecified; G47.33 Obstructive sleep apnea (adult) (pediatric); T40.605A Adverse effect of unspecified narcotics, initial encounter; Y92.9 Unspecified place or not applicable; Z82.49 Family history of ischemic heart disease and other diseases of the circulatory system; Z88.8 Allergy status to other drugs, medicaments and biological substances; Z80.0 Family history of malignant neoplasm of digestive organs; Z87.891 Personal history of nicotine dependence; Z83.3 Family history of diabetes mellitus; Z72.89 Other problems related to lifestyle; Z86.19 Personal history of other infectious and parasitic diseases
CPT/HCPCS: 36415; 70450; 71045; 71250; 74230; 80048; 80053; 80320; 81003; 82803; 83605; 83880; 84484; 85025; 85610; 85730; 86140; 87040; 87070; 87077; 87185; 87205; 93005; 94640; 99284; A9270-GY; G0480; J1644; J2185; J2310; J2543; J2920; J3370; J7512

== ENCOUNTER → 2018-12-09 | Day surgery (SDC) | payer BC ==
[~2018-12-09] MED LIST: Acetaminophen IV 1GM/100ML * 1,000 MG/100 ML VIAL IVPB ONE; Buffered Lidocaine 1% SYRIN* 1 ML/SYRINGE INTRADERM ONE; Bupivacaine 0.25% W/EPI* 10 ML SDV ONE; Dexamethasone IV* 4 MG/ML 1 ML (4 MG) IV SLOW PU ONE; Dexamethasone IV* 4 MG/ML 1 ML (4 MG) ONE; Dexamethasone IV* 4 MG/ML 5 ML VIAL (20 MG) ONE; EPINEPHRINE 1 MG/ML 1 ML VIAL ONE; Famotidine IV* 10 MG/ML 2 ML (20 mg) IV ONE; Famotidine IV* 10 MG/ML 2 ML (20 mg) ONE; HYDROmorphone INJ1* 1 MG/ML SYRINGE IV PRN; HYDROmorphone INJ1* 1 MG/ML SYRINGE ONE; Ketorolac INJ* 30 MG/ML 1 ML VIAL ONE; Lactated Ringers 1000 ML Bag* 1,000 ML IV SCH; Lidocaine 1% INJ* 10 MG/ML 30 ML SDV ONE; Lidocaine 2% PF* 10 ML AMP ONE; Midazolam* 1 MG/ML 2 ML VIAL (2 MG) ONE; Naloxone* 0.4 MG/ML 1 ML VIAL IV PRN; Ondansetron ODT TAB* 4 MG ONE; Ondansetron ODT TAB* 4 MG PO ONE; PROCHLORPERAZINE INJ 5 MG/ML 2 ML VIAL IV PRN; Propofol* 10 MG/ML 20 ML BTL ONE; Rocuronium* 10 MG/ML VIAL ONE; Sugammadex * 500 MG/5 ML VIAL IV PUSH ONE; ceFAZolin 2 GM PREMIX in ORs 2 GM/50 ML BAG ONE; fentaNYL* 50 MCG/ML 2 ML VIAL (100 MCG VIAL) IV PRN; fentaNYL* 50 MCG/ML 5 ML VIAL (250 MCG VIAL) ONE
[2018-12-09 13:22] VITALS: BP 139/78
--- NOTE | 2018-12-09 16:00 | OP ---
DATE OF OPERATION: 12/09/18 - [facility] DATE OF : 48 SURGEON: Gabriel Rogers MD COMMUNITY PLANNER: CLIFTON Rm ANESTHESIA: General. PRE-OP DIAGNOSES: 1. Chondrocalcinosis, right knee. 2. Meniscus tear, right knee. POST-OP DIAGNOSES: 1. Chondrocalcinosis, right knee. 2. Medial meniscus tear, right knee. OPERATIVE PROCEDURE: 1. Right knee arthroscopy. 2. Partial medial meniscectomy. 3. Extensive debridement. ESTIMATED BLOOD LOSS: Negligible. COMPLICATIONS: None. SUMMARY: Mr. Richards is a 68-year-old male who has been having trouble with knee pain for nearly 2 years. He initially had been treated conservatively with physical therapy, anti-inflammatories, injections, but still had very specific complaints of right knee pain. He had been interested in the viscosupplementation which gave him some very short term relief as did the Voltaren gel. With physical exam, he still has a little bit of a click at the time of Yolis testing even though this did not give him any pain. I discussed with him that a knee arthroscopy would be reasonable to get inside the knee to see if there was something that we could do to try and clean the knee up such as with a meniscus tear or just gently scrape the knee to decrease the load of chondrocalcinosis that he has within the knee. I discussed with him that sometimes this can help, and sometimes can delay the inevitable knee replacement. Risks of surgery such as infection, scar formation, stiffness, DVT , pulmonary embolism, and continued pain were discussed and he had wished to proceed. He had been declared medically optimized. DESCRIPTION OF PROCEDURE: The patient was brought to the OR and an LMA was placed. Right knee was prepped and then draped. The portal sites were pre- injected using 0.25% Marcaine with epinephrine and a standard lateral portal was made first using an 11 blade. Blunt trocar with a sheath was easily introduced into the knee and passed under the patella. Camera was introduced into the sheath and the knee was allowed to insufflate. Pulling back, it could be seen that he had very specific white spicules consistent with chondrocalcinosis throughout the suprapatellar pouch. Coming back, it could be also seen how the crystals were embedded within the cartilage itself and pictures were taken. Wear on the underside of the patella was immediately evident. Coming down to the medial gutter, no loose bodies were seen. The medial compartment was entered. Again, extensive chondrocalcinosis was evident. A medial portal was made and a shaver was used to decrease some of the crystal load. Coming upwards, I was able to scrape along the medial femoral condyle without damaging his cartilage, but being able to remove some of the white crystals. Coming back up into the notch, underside of the patella was gently debrided from the loose pieces of cartilage as was the notch. Coming back down, probe was now introduced and it could be seen we had a very specific split in his medial meniscus. Pictures were taken. A shaver was used to smooth this out to a nice stable rim and pictures were taken afterwards. The remainder of the meniscus appeared to be in fairly good condition considering the chondrocalcinosis. Moving into the notch, his synovium was filled with crystals and these were taken out using the shaver. The ACL was intact to probing. Starting to come up into figure- four, again it could be seen how his synovium was full of crystals right along the anterior lip on top of the lateral meniscus and a shaver was used to take this down. In similar fashion, from the medial side, I was able to sweep along the lateral femoral condyle to again decrease a lot of his crystal load. Lateral meniscus was frayed along the edge and shaver was used to smooth that rim down. Similarly, the posterior horn had some damage and again this was smoothed down as well. Coming back up into the suprapatellar pouch, again more crystals were taken down using a shaver and gentle scraping done to try and keep his cartilage intact while decreasing the crystal load. This was repeated throughout the knee so that I could try and hopefully let this feel better. A third look revealed no additional pathology. All instrumentation was removed. Portal sites were closed using 4-0 nylon sutures and the knee was injected with 20 mg of dexamethasone with an additional 10 cc of 0.25% Marcaine with epinephrine. Sterile dressing and a Cryo/Cuff were applied in the OR. The patient had the LMA removed in the OR and was stable on transfer to the recovery room. DISPOSITION/DISCHARGE SUMMARY: Mr. Richards is a 68-year-old male who just underwent a right knee arthroscopy. He tolerated the procedure well. There were no complications. He is here in the recovery room. Once he wakes a bit more from his general anesthesia, he can tolerate p.o., his pain well controlled and can void, he will be discharged home. Script for Radha will be sent in. He has instructions to keep his dressing clean, dry, and intact for the next 3 days, but after that may take his dressing down, cover his sutures with bandage, may shower, wash and get it wet, but should not soak it. I would like to see him in the office in approximately 10 days, remove his sutures, and make sure he is doing well. If he is stiff or has troubles with his motion, we will send him up for physical therapy on a sooner rather than later basis. [id number]/[facility] #: [id number] SOL
== END | disposition home or self-care (01) ==
LOC: OR 08:37
PROVIDERS: ATTEND Orthopaedic Surgery
DX: M23.221 Derangement of posterior horn of medial meniscus due to old tear or injury, right knee (principal); M11.261 Other chondrocalcinosis, right knee; I10 Essential (primary) hypertension; E78.5 Hyperlipidemia, unspecified; G47.33 Obstructive sleep apnea (adult) (pediatric); Z87.891 Personal history of nicotine dependence; G89.29 Other chronic pain; Z68.27 Body mass index [BMI] 27.0-27.9, adult; Z79.899 Other long term (current) drug therapy
CPT/HCPCS: A9270-GY; J0690; J1100; J1170; J1885; J2001; J2250; J2704; J3010

== ENCOUNTER 2020-02-20 10:39 | Observation (INO) ==
[2020-02-20] MEDS ORDERED: NS 0.9% 1000 ml BAG 1,000 ML IV ONE ×2 (11:07→13:58)
[2020-02-20 12:06] LABS: ABS Lymphocytes 0.6 10^3/ul (1.0-4.8); ABS Monocytes 0.4 10^3/ul (0-0.8); ABS Neutrophils 6.4 10^3/ul (1.5-7.7); Eosinophil % 0.2 %; Hematocrit 37 % (42-52); Hemoglobin 12.4 g/dL (14.0-18.0); Lymphocyte % 8.4 %; Mean Corpuscular HGB Conc 33 g/dL (31-36); Mean Corpuscular Hemoglobin 28 pg (27-31); Mean Corpuscular Volume 83 fL (80-94); Mean Platelet Volume 7.7 fL (7.4-10.4); Nucleated Red Blood Cells % 0.1; Platelet Count 167 10^3/uL (150-450); Red Blood Count 4.49 10^6 /uL (4.18-5.48); Red Cell Distribution Width 14 % (10-15); White Blood Count 7.5 10^3/uL (3.5-10.8)
[2020-02-20 12:14] LABS: Activated Partial Thrombo Time 34.2 seconds (26.0-38.0); INR 1.2 (0.82-1.09)
[2020-02-20 12:17] LABS: ALT 15 U/L (7-52); AST 29 U/L (13-39); Albumin/Globulin Ratio 1.3 (1-3); Alkaline Phosphatase 45 U/L (34-104); Anion Gap 11 mmol/L (2-11); BUN/Creatinine Ratio 17.9 (8-20); Blood Urea Nitrogen 24 mg/dL (6-24); C Reactive Protein 59.19 mg/L (<8.01); CO2 Carbon Dioxide 20 mmol/L (22-32); Calcium 9.3 mg/dL (8.6-10.3); Chloride 100 mmol/L (101-111); EGFR African American 63.6 (>60); EGFR Non-African American 52.5 (>60); Glucose 81 mg/dL (70-100); Potassium 4.4 mmol/L (3.5-5.0); Sodium 131 mmol/L (135-145)
[2020-02-20 12:27] LABS: Influenza A Molecular Negative (Negative); Influenza B Molecular Negative (Negative)
[2020-02-20 12:39] LABS: LDH 187 U/L (140-271)
[2020-02-20 12:45] LABS: Troponin I 0.03 ng/mL (<0.03)
[2020-02-20 12:59] LABS: Ferritin 254.5 ng/mL (24-336)
[2020-02-20] MEDS ORDERED: Metoprolol Tartrate 5 mg VIAL 5 ml VIAL (1 mg/ml) IV ONE (13:45)
[2020-02-20 14:02] LABS: Creatine Kinase 127 U/L (10-223)
[2020-02-20] MEDS ORDERED: Iohexol 350 (CONTRAST) 500 ML MDV IV ONE (14:13)
[2020-02-20] MEDS ORDERED: Piperacillin/Tazobac ADVAN 3.375 GM in NS 0.9% 100 ml BAG 100 ML IV ONE (15:47)
[2020-02-20] MEDS ORDERED: Albuterol HFA INHALER 8 gm MDI INH PRN (15:59)
[2020-02-20] MEDS ORDERED: Lactulose 30 ml UDC PO PRN (15:59)
[2020-02-20] MEDS ORDERED: NS 0.9% 1000 ml BAG 800 ML IV SCH (16:00)
[2020-02-20] MEDS ORDERED: NS 0.9% 1000 ml BAG 1,000 ML IV SCH (16:00)
[2020-02-20] MEDS ORDERED: Zosyn per Pharmacy NOTE FOLLOW UP SCH (16:00)
[2020-02-20] MEDS ORDERED: Benzocaine/Menthol LOZ MT PRN (16:01)
[2020-02-20] MEDS ORDERED: Ondansetron 4 mg VIAL 2 MG/ML 2 ml VIAL IV PRN (16:06)
[2020-02-20] MEDS ORDERED: oxyCODONE SR 40 mg TAB PO PRN ×2 (16:24→16:26)
[2020-02-20] MEDS ORDERED: oxyCODONE SR 10 mg TAB PO PRN (16:25)
[2020-02-20] MEDS ORDERED: cefTRIAXone 1 gm/50 mL NS BAG 1 GM/50 ML BAG IVPB SCH (17:00)
[2020-02-20] MEDS ORDERED: Enoxaparin 40 MG/0.4 ML SYR SUBCUT SCH (17:00)
[2020-02-20 17:55] LABS: Rapid Strep Molecular Negative (Negative)
[2020-02-20 18:19] LABS: Troponin I 0.05 ng/mL (<0.03)
[2020-02-20 20:54] LABS: Troponin I 0.03 ng/mL (<0.03)
[2020-02-20] MEDS ORDERED: CMC:Fenofibrate 145 mg TAB (NF) PO SCH (21:00)
[2020-02-20] MEDS: metroNIDAZOLE IV 500 MG/100ML 500 MG/100 ML BAG IVPB SCH (21:39)
[2020-02-21] MEDS: metroNIDAZOLE IV 500 MG/100ML 500 MG/100 ML BAG IVPB SCH ×2 (03:30→10:40)
[2020-02-21 05:12] LABS: ABS Eosinophils 0.1 10^3/ul (0-0.6); ABS Lymphocytes 2.3 10^3/ul (1.0-4.8); ABS Monocytes 0.4 10^3/ul (0-0.8); ABS Neutrophils 4.3 10^3/ul (1.5-7.7); Eosinophil % 1.5 %; Hematocrit 31 % (42-52); Hemoglobin 10.1 g/dL (14.0-18.0); Lymphocyte % 31.6 %; Mean Corpuscular HGB Conc 33 g/dL (31-36); Mean Corpuscular Hemoglobin 27 pg (27-31); Mean Corpuscular Volume 83 fL (80-94); Mean Platelet Volume 7.6 fL (7.4-10.4); Platelet Count 132 10^3/uL (150-450); Red Blood Count 3.72 10^6 /uL (4.18-5.48); Red Cell Distribution Width 14 % (10-15); White Blood Count 7.2 10^3/uL (3.5-10.8)
[2020-02-21 05:28] LABS: Albumin 3.3 g/dL (3.2-5.2); Albumin/Globulin Ratio 1.3 (1-3); BUN/Creatinine Ratio 18.1 (8-20); Calcium 8.7 mg/dL (8.6-10.3); EGFR African American 84.2 (>60); EGFR Non-African American 69.6 (>60); Globulin 2.5 g/dL (2-4); Potassium 4.4 mmol/L (3.5-5.0); Total Bilirubin 0.8 mg/dL (0.2-1.0); Total Protein 5.8 g/dL (6.4-8.9)
[2020-02-21 10:27] VITALS: BP 146/68
== END 2020-02-21 14:25 | disposition home or self-care (01) ==
LOC: ED 10:39 → MED 10:39
PROVIDERS: ADMIT Internal Medicine; ATTEND Internal Medicine